=== PATIENT | female | born 1985 | race African-American/Black ===

== ENCOUNTER 2016-12-08 04:14 | Emergency (ER) | payer MEDICAID ==
[2016-12-08] MEDS ORDERED: ALBUTEROL SULFATE 0.083% NEB 2.5 MG/3 ML AMPUL NEB ONE (09:01)
[2016-12-08 09:02] LABS: APPEARANCE,URINE CLEAR; BILIRUBIN,URINE NEGATIVE (NEGATIVE); GLUCOSE, URINE NEGATIVE (NEGATIVE); KETONES,URINE NEGATIVE (NEGATIVE); LEUKOCYTE ESTERASE,URINE TRACE (NEGATIVE); NITRITE,URINE NEGATIVE (NEGATIVE); PROTEIN,URINE NEGATIVE (NEGATIVE); URINE SPECIFIC GRAVITY 1.012; UROBILINOGEN,URINE NEGATIVE mg/dL (<2.0)
--- NOTE | 2016-12-08 09:02 | ER Document Report ---
HPI - HPI Patient complains to provider of: cough and flank pain Onset: Other - Cough for 4 months, flank pain for 6 months Onset/Duration: Persistent Pain Level: 4 Context: 31-year-old female complaining of flank pain for 6 months and cough for 4 months. No fever or chills. - CARDIOVASCULAR Cardiovascular: DENIES: Chest pain - REPRODUCTIVE LMP: 12-03-16 Reproductive: DENIES: : - DERM Skin Color: Normal Past Medical History - General Information source: Patient - Social History Smoking Status: Current Every Day Smoker Chew tobacco use (# tins/day): No Frequency of alcohol use: None Drug Abuse: None Family History: Reviewed & Not Pertinent, Malignancy, Thyroid Disfunction Patient has suicidal ideation: No Patient has homicidal ideation: No Pulmonary Medical History: Reports: Hx Asthma Psychiatric Medical History: Reports: Hx Depression - , Hx Personality Disorder, Hx Post Traumatic Stress Disorder Past Surgical History: Reports: Hx Section - 07/2016 - Immunizations Immunizations up to date: Yes Hx Diphtheria, Pertussis, Tetanus Vaccination: Yes Hx Pneumococcal Vaccination: 09/11/00 Vertical Provider Document - CONSTITUTIONAL Agree With Documented VS: Yes - INFECTION CONTROL TRAVEL OUTSIDE OF THE [place] IN LAST 30 DAYS: No - HEENT HEENT: Normal ENT Exam, Normocephalic. negative: Conjuctival Injection, Pharyngeal Erythema, Tympanic Membrane Red - NECK Neck: Supple. negative: Lymphadenopathy-Left, Lymphadenopathy-Right - RESPIRATORY Respiratory: Breath Sounds Normal, No Respiratory Distress O2 Sat by Pulse Oximetry: 97 - CARDIOVASCULAR Cardiovascular: Regular Rate, Regular Rhythm - GI/ABDOMEN Gastrointestinal: Abdomen Soft, Abdomen Non-Tender, No Organomegaly - BACK Back: Normal Inspection. negative: CVA Tenderness-Right, CVA Tenderness-Left - MUSCULOSKELETAL/EXTREMETIES Musculoskeletal/Extremeties: MAEW, FROM, Non-Tender - NEURO Level of Consciousness: Awake, Alert, Appropriate Motor/Sensory: No Motor Deficit, No Sensory Deficit - DERM Integumentary: Warm, Dry, No Rash Course - Vital Signs Vital signs: Temp Pulse Resp BP Pulse Ox 97.6 F 78 134/81 H 97 12/08/16 04:19 12/08/16 04:19 12/08/16 04:19 12/08/16 04:19 Discharge - Discharge Clinical Impression: Upper respiratory infection, viral, hx asthma, Flank pain Condition: Good Disposition: HOME, SELF-CARE Instructions: Asthma ([facility]), Inhaled Bronchodilators ([facility]), Steroid Medication, Upper Respiratory Illness ([facility]), Stop Smoking ([facility]) Additional Instructions: see [facility] for follow [facility] as planned stop smoking to er if worse Please complete the patient satisfaction survey if you get one, and return it.. If you do not receive a survey, then you can go to the [facility] website, [email or web address] and place your comments about your very good care. Thank you very much. It was a pleasure being your medical provider today. Prescriptions: Albuterol Sulfate [Ventolin 0.083% Neb 2.5 mg/3 mL Ampul] 2.5 mg NEB Q3HP PRN # 25 vial PRN Reason: Albuterol Sulfate [Proair HFA Inhalation Aerosol 8.5 gm MDI] 2 puff IH Q3HP PRN #1 [id number] PRN Reason: Prednisone [Deltasone 10 mg Tablet] 10 mg PO ASDIR PRN #21 tablet PRN Reason: Forms: Return to Work
[2016-12-08 09:57] VITALS: BP 99/52
== END 2016-12-08 10:26 | disposition home or self-care (01) ==
LOC: ER 04:14
DX: J06.9 Acute upper respiratory infection, unspecified (principal); B97.89 Other viral agents as the cause of diseases classified elsewhere; R05 Cough; R10.9 Unspecified abdominal pain; J45.909 Unspecified asthma, uncomplicated; F17.200 Nicotine dependence, unspecified, uncomplicated
CPT/HCPCS: 71020; 81001; 81025; 87086; 94640; 99284

== ENCOUNTER 2017-02-15 09:06 | Emergency (ER) | payer MEDICAID ==
[2017-02-15] MEDS ORDERED: ALBUTEROL SULFATE 0.083% NEB 2.5 MG/3 ML AMPUL NEB ONE (09:36)
--- NOTE | 2017-02-15 09:42 | ER Document Report ---
ED Respiratory Problem - General Chief Complaint: Congestion Stated Complaint: SHORTNESS OF BREATH Time Seen by Provider: 02/15/17 09:33 Notes: 31 yo female with hx/o asthma c/o coughing and chest tightness. admits to running out of albuterol neb solution and inhalers. asthma is triggered by allergies and symptoms have been worse since [facility]. no fever TRAVEL OUTSIDE OF THE [place] IN LAST 30 DAYS: No - HPI Patient complains to provider of: Asthma, Cough, Short of breath Onset: This morning Duration: Continuous Initiating Event: Allergy Quality of pain: No pain Short of Breath: Mild Cough: Nonproductive Sputum amount: None Associated symptoms: None - Related Data Allergies/Adverse Reactions: No Known Allergies Allergy (Verified 02/15/17 09:12) Past Medical History - General Information source: Patient - Social History Smoking Status: Never Smoker Frequency of alcohol use: None Drug Abuse: None Lives with: Family Family History: Reviewed & Not Pertinent, Malignancy, Thyroid Disfunction Patient has suicidal ideation: No Patient has homicidal ideation: No - Past Medical History Cardiac Medical History: Denies: Hx Hypertension, Hx Pulmonary Embolism, Hx Heart Murmur Pulmonary Medical History: Reports: Hx Asthma Denies: Hx Sleep Apnea, Hx Tuberculosis Neurological Medical History: Denies: Hx Cerebrovascular Accident, Hx Seizures Endocrine Medical History: Denies: Hx Hyperthyroidism, Hx Hypothyroidism Renal/ Medical History: Denies: Hx Kidney Stones, Hx Ovarian Cysts, Hx Peritoneal Dialysis, Hx Pelvic Inflammatory Disease Malignancy Medical History: Denies: Hx Breast Cancer, Hx Cervical Cancer, Hx Ovarian Cancer GI Medical History: Denies: Hx Gastroesophageal Reflux Disease, Hx Hiatal Hernia , Hx Ulcer Musculoskeltal Medical History: Denies Hx Fibromyalgia Psychiatric Medical History: Reports: Hx Depression - , Hx Personality Disorder, Hx Post Traumatic Stress Disorder Denies: Hx Bipolar Disorder, Hx Schizophrenia Traumatic Medical History: Denies: Hx Fractures Infectious Medical History: Denies: Hx HIV Past Surgical History: Reports: Hx Section - 07/2016 - Immunizations Immunizations up to date: Yes Hx Diphtheria, Pertussis, Tetanus Vaccination: Yes Hx Pneumococcal Vaccination: 09/11/00 Review of Systems - Review of Systems Constitutional: No symptoms reported EENT: No symptoms reported Cardiovascular: No symptoms reported Respiratory: See HPI, Cough Gastrointestinal: No symptoms reported Genitourinary: No symptoms reported Female Genitourinary: No symptoms reported Musculoskeletal: No symptoms reported Skin: No symptoms reported Hematologic/Lymphatic: No symptoms reported Neurological/Psychological: No symptoms reported Physical Exam - Vital signs Vitals: Temp Pulse Resp BP Pulse Ox 97.7 F 63 16 115/82 98 02/15/17 09:11 02/15/17 09:11 02/15/17 09:11 02/15/17 09:11 02/15/17 09:11 Interpretation: Normal - General General appearance: Appears well, Alert - HEENT Head: Normocephalic, Atraumatic Eyes: Normal Pupils: PERRL - Respiratory Respiratory status: No respiratory distress Chest status: Nontender Breath sounds: Wheezing Chest palpation: Normal - Cardiovascular Rhythm: Regular Heart sounds: Normal auscultation Murmur: No - Abdominal Inspection: Normal Distension: No distension Bowel sounds: Normal Tenderness: Nontender Organomegaly: No organomegaly - Back Back: Normal, Nontender - Extremities General upper extremity: Normal inspection, Nontender, Normal color, Normal ROM , Normal temperature General lower extremity: Normal inspection, Nontender, Normal color, Normal ROM , Normal temperature, Normal weight bearing. No: Queta's sign - Neurological Neuro grossly intact: Yes Cognition: Normal Orientation: AAOx4 Kristian Coma Scale Eye Opening: Spontaneous [place] Coma Scale Verbal: Oriented [place] Coma Scale Motor: Obeys Commands [place] Coma Scale Total: 15 Speech: Normal Motor strength normal: LUE, RUE, LLE, RLE Sensory: Normal - Psychological Associated symptoms: Normal affect, Normal mood - Skin Skin Temperature: Warm Skin Moisture: Dry Skin Color: Normal Course - Vital Signs Vital signs: Temp Pulse Resp BP Pulse Ox 97.7 F 63 16 115/82 98 02/15/17 09:11 02/15/17 09:11 02/15/17 09:11 02/15/17 09:11 02/15/17 09:11 Discharge - Discharge Clinical Impression: Asthma exacerbation Condition: Stable Disposition: HOME, SELF-CARE Instructions: Asthma ([facility]), Inhaled Bronchodilators ([facility]) Additional Instructions: medications as prescribed establish with primary care for further evaluation and treatment avoid triggers when possible Prescriptions: Albuterol Sulfate [Proair HFA Inhalation Aerosol 8.5 gm MDI] 2 puff IH Q4H PRN # 1 mdi PRN Reason: Albuterol Sulfate [Albuterol Sulfate 2.5mg/3 mL] 2.5 mg IH Q4H PRN #30 vial PRN Reason: Cetirizine HCl [Allergy Relief] 10 mg PO DAILY #30 capsule
[2017-02-15 10:45] VITALS: BP 120/88
== END 2017-02-15 10:45 | disposition home or self-care (01) ==
LOC: ER 09:06
DX: J45.901 Unspecified asthma with (acute) exacerbation (principal); T48.6X6A Underdosing of antiasthmatics, initial encounter; Z91.14 Patient's other noncompliance with medication regimen; R05 Cough; R07.89 Other chest pain
CPT/HCPCS: 94640; 99283

== ENCOUNTER → 2017-02-25 | Outpatient (CLI) | payer MEDICAID | LOC: LAB 12:42 | PROVIDERS: ATTEND Emergency Medicine | DX: N89.8 Other specified noninflammatory disorders of vagina (principal); R30.0 Dysuria | CPT/HCPCS: 87086; 87210 ==

== ENCOUNTER 2017-03-09 04:12 | Emergency (ER) | payer MEDICAID ==
[2017-03-09] MEDS ORDERED: IPRATROPIUM/ALBUTEROL 0.5-2.5 MG/3 ML AMPUL NEB ONE (04:37)
[2017-03-09] MEDS ORDERED: PREDNISONE 20 MG TABLET PO ONE (04:38)
--- NOTE | 2017-03-09 04:38 | ER Document Report ---
ED General - General Chief Complaint: Cough Stated Complaint: RUNNY NOSE,COUGH Time Seen by Provider: 03/09/17 04:29 Notes: Patient is a 31 year old female that comes to the ED for chief complaint of vaginal discharge and pelvic cramps for the past 2 days, also reports cough, runny nose, and wheezing for the past week. Patient smokes, has a history of asthma, states she supposed to be on an allergy to medication but she "always forgets to take it every morning". Patient denies any fever, denies worsening cough, denies shortness of breath aside from intermittent wheezing episodes, she states her albuterol inhaler works but she cannot shake the symptoms. Patient admits that she has been sexually active with a new partner without protection recently. She also reports a sore throat. TRAVEL OUTSIDE OF THE [place] IN LAST 30 DAYS: No - Related Data Allergies/Adverse Reactions: No Known Allergies Allergy (Verified 02/15/17 09:12) Past Medical History - General Information source: Patient - Social History Smoking Status: Current Every Day Smoker Smoking Education Provided: Yes - <3 min Frequency of alcohol use: None Drug Abuse: None Lives with: Family Family History: Reviewed & Not Pertinent, Malignancy, Thyroid Disfunction Patient has suicidal ideation: No - Past Medical History Cardiac Medical History: Denies: Hx Hypertension, Hx Pulmonary Embolism, Hx Heart Murmur Pulmonary Medical History: Reports: Hx Asthma Denies: Hx Sleep Apnea, Hx Tuberculosis Neurological Medical History: Denies: Hx Cerebrovascular Accident, Hx Seizures Endocrine Medical History: Denies: Hx Hyperthyroidism, Hx Hypothyroidism Renal/ Medical History: Denies: Hx Kidney Stones, Hx Ovarian Cysts, Hx Peritoneal Dialysis, Hx Pelvic Inflammatory Disease Malignancy Medical History: Denies: Hx Breast Cancer, Hx Cervical Cancer, Hx Ovarian Cancer GI Medical History: Denies: Hx Gastroesophageal Reflux Disease, Hx Hiatal Hernia , Hx Ulcer Musculoskeltal Medical History: Denies Hx Fibromyalgia Psychiatric Medical History: Reports: Hx Depression - , Hx Personality Disorder, Hx Post Traumatic Stress Disorder Denies: Hx Bipolar Disorder, Hx Schizophrenia Traumatic Medical History: Denies: Hx Fractures Infectious Medical History: Denies: Hx HIV Past Surgical History: Reports: Hx Section - 07/2016 - Immunizations Immunizations up to date: Yes Hx Diphtheria, Pertussis, Tetanus Vaccination: Yes Hx Pneumococcal Vaccination: 09/11/00 Review of Systems - Review of Systems Constitutional: No symptoms reported EENT: See HPI Cardiovascular: No symptoms reported Respiratory: See HPI Gastrointestinal: No symptoms reported Genitourinary: No symptoms reported Female Genitourinary: See HPI Musculoskeletal: No symptoms reported Skin: No symptoms reported Hematologic/Lymphatic: No symptoms reported Neurological/Psychological: No symptoms reported Physical Exam - Vital signs Vitals: Temp Pulse Resp BP Pulse Ox 97.7 F 107 H 20 130/88 H 100 03/09/17 04:03/09/17 04:03/09/17 04:03/09/17 04:03/09/17 04:17 Interpretation: Normal - General General appearance: Appears well, Alert In distress: None - HEENT Head: Normocephalic, Atraumatic Eyes: Normal Pupils: PERRL Ears: Normal External canal: Normal Tympanic membrane: Normal Sinus: Normal Nasal: Normal Mouth/Lips: Normal Mucous membranes: Normal Pharynx: Erythema - mild Neck: Normal - Respiratory Respiratory status: No respiratory distress Chest status: Nontender Breath sounds: Decreased air movement, Wheezing - faint end expiratory symptoms Chest palpation: Normal - Cardiovascular Rhythm: Regular. No: Tachycardia Heart sounds: Normal auscultation, S1 appreciated, S2 appreciated Murmur: No - Abdominal Inspection: Normal Distension: No distension Bowel sounds: Normal Tenderness: Nontender. No: Tender, Guarding Organomegaly: No organomegaly - Genitourinary Speculum exam: Cervix closed, Vaginal discharge Vaginal bleeding: None Bimanuel exam: Normal. No: Cervical motion tender - Back Back: Normal, Nontender. No: Tender - Extremities General upper extremity: Normal inspection, Nontender, Normal color, Normal ROM , Normal temperature General lower extremity: Normal inspection, Nontender, Normal color, Normal ROM , Normal temperature, Normal weight bearing. 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 Urine unremarkable, negative HCG, wet mount shows trichomonas, 4+ bacteria. Treating for pelvic infection, BV, trichomonas. Discussed follow up, return precautions, patient states understanding and agreement. - Vital Signs Vital signs: Temp Pulse Resp BP Pulse Ox 98.2 F 64 16 132/63 H 95 03/09/17 07:25 03/09/17 07:25 03/09/17 07:25 03/09/17 07:25 03/09/17 07:25 - Laboratory Laboratory results interpreted by me: 03/09/17 05:10 Ur Leukocyte Esterase TRACE H Discharge - Discharge Clinical Impression: Vaginal discharge, Trichomonas infection, Bacterial vaginosis, Wheezing, Cough , Asthma exacerbation, Tobacco abuse Condition: Stable Disposition: HOME, SELF-CARE Additional Instructions: Take Flagyl as prescribed for treatment of both trichomonas infection and bacterial vaginosis. You have been covered additionally for potential pelvic infection including gonorrhea and chlamydia, these tests are still pending. Stop smoking. Take prednisone as prescribed, use albuterol inhaler as needed, follow-up with primary care for additional evaluation. Return to emergency department for any concerning or worsening symptoms including fever, difficulty breathing, etc. Prescriptions: Albuterol Sulfate [Proair HFA Inhalation Aerosol 8.5 gm MDI] 2 puff IH Q4H PRN # 1 mdi PRN Reason: Metronidazole [Flagyl 500 mg Tablet] 500 mg PO BID #14 tablet Prednisone [Deltasone 10 mg Tablet] 10 mg PO ASDIR PRN #21 tablet PRN Reason:
[2017-03-09 05:41] LABS: APPEARANCE,URINE SLIGHTLY-CLOUDY; BILIRUBIN,URINE NEGATIVE (NEGATIVE); GLUCOSE, URINE NEGATIVE (NEGATIVE); KETONES,URINE NEGATIVE (NEGATIVE); LEUKOCYTE ESTERASE,URINE TRACE (NEGATIVE); NITRITE,URINE NEGATIVE (NEGATIVE); PROTEIN,URINE NEGATIVE (NEGATIVE); UROBILINOGEN,URINE NEGATIVE mg/dL (<2.0)
[2017-03-09] MEDS ORDERED: LIDOCAINE 1% INJ-PF (10 MG/ML) 30 ML SDV INJ ONE (06:12)
[2017-03-09] MEDS ORDERED: CEFTRIAXONE INJ 250 MG VIAL IM ONE (06:12)
[2017-03-09] MEDS ORDERED: AZITHROMYCIN 250 MG TABLET PO ONE (06:12)
[2017-03-09] MEDS ORDERED: METRONIDAZOLE 500 MG TABLET PO ONE (06:12)
[2017-03-09] MEDS ORDERED: ALBUTEROL SULFATE HFA (90 MCG/PUFF) 8 GM MDI (1 MDI/ER DISP) IH ONE (06:14)
[2017-03-09 06:58] LABS: CHLAM PCR NOT DETECTED (NOT DETECT)
[2017-03-09 07:35] VITALS: BP 132/63
== END 2017-03-09 07:35 | disposition home or self-care (01) ==
LOC: ER 04:12
DX: N76.0 Acute vaginitis (principal); B96.89 Other specified bacterial agents as the cause of diseases classified elsewhere; A59.9 Trichomoniasis, unspecified; N73.9 Female pelvic inflammatory disease, unspecified; J45.901 Unspecified asthma with (acute) exacerbation; T50.906A Underdosing of unspecified drugs, medicaments and biological substances, initial encounter; Z91.138 Patient's unintentional underdosing of medication regimen for other reason; Z91.14 Patient's other noncompliance with medication regimen; R05 Cough; R09.89 Other specified symptoms and signs involving the circulatory and respiratory systems; J02.9 Acute pharyngitis, unspecified; F17.200 Nicotine dependence, unspecified, uncomplicated; Z71.6 Tobacco abuse counseling
CPT/HCPCS: 94640; 99283; 96372; 87070; 87210; 87880; 81025; 87077; 81001; 87491; 87591; Q0144; J3490 ×3; J7512; J0696; J7620

== ENCOUNTER 2017-04-22 14:30 | Emergency (ER) | payer OTHER, MEDICAID ==
[2017-04-22] MEDS ORDERED: OXYCODONE-ACETAMINOPHEN 5-325 MG TABLET PO ONE (14:55)
[2017-04-22] MEDS ORDERED: ONDANSETRON 4 MG TAB.RAPDIS PO ONE (14:55)
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
[2017-04-22] MEDS ORDERED: LIDOCAINE 2% JELLY 5 ML TUBE TOP ONE (15:43)
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
[2017-04-22 16:19] VITALS: BP 117/82
== END 2017-04-22 16:19 | disposition home or self-care (01) ==
LOC: ER 14:30
DX: M79.1 Myalgia (principal); V89.2XXA Person injured in unspecified motor-vehicle accident, traffic, initial encounter
CPT/HCPCS: 99284; 70450; 71250; 72125; 74176; S0119

== ENCOUNTER 2017-04-28 23:11 | Emergency (ER) | payer MEDICAID, OTHER ==
--- NOTE | 2017-04-29 01:49 | ER Document Report ---
ED General - General Chief Complaint: Rectal Bleeding Stated Complaint: ABDOMINAL PAIN Time Seen by Provider: 04/29/17 01:38 Notes: Patient is a 31-year-old female who presents with complaint of some rectal bleeding periods been ongoing for 3 days. She says she has been passing blood and some clots. No fevers. No vomiting. No diarrhea. She does have a history of recurrent hemorrhoids. She says her external hemorrhoids have not been bothering her. She is unsure if she has internal hemorrhoids. She has some cramping in her lower abdomen. No other complaints at this time. She says that she does have a family history of colon cancer. Her grandmother when she was in her 50s from colon cancer. When she was diagnosed they told her that she most likely had cancer for approximately 10 years prior to diagnosis which meant that she is expected she had cancer when she was in her 40s. Patient herself has never had colonoscopy. She is followed by the GI physician, Dr. Wright. Patient says Dr. Wright is out of town until next week. TRAVEL OUTSIDE OF THE [place] IN LAST 30 DAYS: No - Related Data Allergies/Adverse Reactions: No Known Allergies Allergy (Verified 04/28/17 23:41) Past Medical History - Social History Smoking Status: Never Smoker Frequency of alcohol use: None Drug Abuse: None Family History: Reviewed & Not Pertinent, Malignancy, Thyroid Disfunction - Past Medical History Cardiac Medical History: Denies: Hx Hypertension, Hx Pulmonary Embolism, Hx Heart Murmur Pulmonary Medical History: Reports: Hx Asthma Denies: Hx Sleep Apnea, Hx Tuberculosis Neurological Medical History: Denies: Hx Cerebrovascular Accident, Hx Seizures Endocrine Medical History: Denies: Hx Hyperthyroidism, Hx Hypothyroidism Renal/ Medical History: Denies: Hx Kidney Stones, Hx Ovarian Cysts, Hx Peritoneal Dialysis, Hx Pelvic Inflammatory Disease Malignancy Medical History: Denies: Hx Breast Cancer, Hx Cervical Cancer, Hx Ovarian Cancer GI Medical History: Denies: Hx Gastroesophageal Reflux Disease, Hx Hiatal Hernia , Hx Ulcer Musculoskeltal Medical History: Denies Hx Fibromyalgia Psychiatric Medical History: Reports: Hx Depression - , Hx Personality Disorder, Hx Post Traumatic Stress Disorder Denies: Hx Bipolar Disorder, Hx Schizophrenia Traumatic Medical History: Denies: Hx Fractures Infectious Medical History: Denies: Hx HIV Past Surgical History: Reports: Hx Section - 07/2016 - Immunizations Immunizations up to date: Yes Hx Diphtheria, Pertussis, Tetanus Vaccination: Yes Hx Pneumococcal Vaccination: 09/11/00 Review of Systems - Review of Systems Notes: My Normal Review Basic REVIEW OF SYSTEMS: CONSTITUTIONAL : Denies fever, chills, or sweats. Denies recent illness. RESPIRATORY: Denies cough, cold, or chest congestion. Denies shortness of breath, difficulty breathing, or wheezing. GASTROINTESTINAL: Some abdominal cramping. Pain. Denies nausea, vomiting, or diarrhea. Rectal bleeding. GENITOURINARY: Denies difficulty urinating, painful urination, burning, frequency, or blood in urine. FEMALE GENITOURINARY: Denies vaginal bleeding, abnormal or irregular periods. MUSCULOSKELETAL: Denies neck or back pain or joint pain or swelling. SKIN: Denies rash or skin lesions. NEUROLOGICAL: Denies altered mental status or loss of consciousness. Denies headache. Denies weakness or paralysis or loss of use of either side. Denies problems with gait or speech. Denies sensory or motor loss. ALL OTHER SYSTEMS REVIEWED AND NEGATIVE. Physical Exam - Vital signs Vitals: Temp Pulse Resp BP Pulse Ox 97.5 F 78 18 120/76 100 04/29/17 02:13 04/29/17 02:13 04/29/17 02:13 04/29/17 02:13 04/29/17 02:13 - Notes Notes: General Appearance: Well nourished, alert, cooperative, no acute distress, no obvious discomfort. Well-appearing. Vitals: reviewed, See vital signs table. Head: no swelling or tenderness to the head Eyes: PERRL, EOMI, Conjuctiva clear Mouth: No decreasd moisture Lungs: No wheezing, No rales, No rhonci, No accessory muscle use, good air exchange bilaterally. Heart: Normal rate, Regular rythm, No murmur, no rub Abdomen: Normal BS, soft, No rigidity, No abdominal tenderness, No guarding, no rebound, no abdominal masses, no organomegaly Rectal: Multiple external hemorrhoids. Some pain on digital rectal exam. No masses felt on digital rectal exam.. Rectal exam was performed with female nurse it investment/portfolio manager, Eneida, in the room. Extremities: strength 5/5 in all extremities, good pulses in all extremities, no swelling or tenderness in the extremities, no edema. Skin: warm, dry, appropriate color, no rash Neuro: speech clear, oriented x 3, normal affect, responds appropriately to questions. Course - Re-evaluation Re-evalutation: 04/29/17 06:57 I will refer the patient to GI specialist due to the rectal bleeding and family history of colon cancer young age. Patient does not have any active bleeding at this time here in the ER and her hemoglobin is normal. CT scan did not show any large tumors or concerning findings except for a dermoid cyst which she is aware of. She says it was found not longer by her primary care doctor. I will refer her to a title i director to help follow this and to do a biopsy if they feel that is needed to rule out any form of malignancy. I did talk about dermoid cysts and the possibility that this could be a malignancy although that this is low likelihood. She is understanding of this and does agree to follow-up. Patient encouraged to return to ER if she has severe pain, fevers, heavy bleeding, or feels that she is worsening in any way. Patient agrees with plan will be discharged home. Dictation of this chart was performed using voice recognition software; therefore, there may be some unintended grammatical errors. - Vital Signs Vital signs: Temp Pulse Resp BP Pulse Ox 98.5 F 75 18 109/68 98 04/29/17 05:09 04/29/17 05:09 04/29/17 05:09 04/29/17 05:09 04/29/17 05:09 - Laboratory Result Diagrams: 04/29/17 02:51 04/29/17 02:51 Laboratory results interpreted by me: 04/29/17 02:51 Glucose 122 H Discharge - Discharge Clinical Impression: Rectal bleeding, Dermoid cyst Condition: Good Disposition: HOME, SELF-CARE Additional Instructions: Your CT scan shows a dermoid cyst over the left ovary. This needs to be followed closely by a title i director to make sure it is not increasing in size. They will most likely follow-up with ultrasounds and determine whether or not you need a biopsy or just continued routine monitoring. Cancer is unlikely but always still a possibility and that is why is extremely important that this is monitored by the title i director and that you follow-up with the title i director. The title i director environmental sustainability manager chente is Dr. Harris. I did put her information in your discharge paperwork so you can call the office. Please follow-up with a GI physician in regards to your rectal bleeding and family history of colon cancer. Your CT scan today did not show any obvious large bowel masses however CT scan is not 100% and will not rule out potential precancerous polyps. The GI physicians I have provided information to are Dr. Joshi, Dr. Wright, and Dr. Reddy. Please call any of those for a follow-up appointment. Please return to the ER if you get worsening bleeding, severe pain, fevers, or feel unwell. Referrals: RENEE SABA MD [Primary Care Provider] - Follow up as needed OLGA HARRIS MD [ACTIVE STAFF] - Follow up in 3-5 days LUCIA WRIGHT MD [ACTIVE STAFF] - Follow up in 3-5 days DANGELO JOSHI MD [ACTIVE STAFF] - Follow up in 3-5 days ANTON REDDY MD [ACTIVE STAFF] - Follow up in 3-5 days
[2017-04-29 03:00] LABS: ABSOLUTE BASOPHILS # (AUTO) 0.1 10^3/uL (0.0-0.2); ABSOLUTE EOSINOPHILS # (AUTO) 0.3 10^3/uL (0.0-0.6); ABSOLUTE LYMPHOCYTES (AUTO) 2.9 10^3/uL (0.5-4.7); ABSOLUTE MONOCYTES (AUTO) 0.6 10^3/uL (0.1-1.4); ABSOLUTE NEUT (AUTO) 3.9 10^3/uL (1.7-8.2); BASOPHILS % (AUTO) 1.2 % (0-2); EOSINOPHILS % (AUTO) 4.2 % (0-6); HEMATOCRIT 38.5 % (36.0-47.0); HEMOGLOBIN 13.1 g/dL (12.0-15.5); HGB HCT DIFFERENCE 0.8; LYMPHOCYTES % (AUTO) 37.1 % (13-45); MEAN CORPUSCULAR HEMOGLOBIN 30.9 pg (27.0-33.4); MEAN CORPUSCULAR VOLUME 91 fl (80-97); MONOCYTES % (AUTO) 7.4 % (3-13); RED BLOOD COUNT 4.24 10^6/uL (3.72-5.28); RED CELL DISTRIBUTION WIDTH 12.6 % (11.5-14.0); SEGMENTED NEUTROPHILS % (AUTO) 50.1 % (42-78); WHITE BLOOD COUNT 7.7 10^3/uL (4.0-10.5)
[2017-04-29 03:10] LABS: ANION GAP 7 (5-19); BLOOD UREA NITROGEN 16 mg/dL (7-20); CALCIUM 9.7 mg/dL (8.4-10.2); CARBON DIOXIDE 27 mmol/L (22-30); CHLORIDE 107 mmol/L (98-107); CREATININE RESULT 0.64 mg/dL (0.52-1.25); GLUCOSE 122 mg/dL (75-110); POTASSIUM 4.2 mmol/L (3.6-5.0); SODIUM 140.5 mmol/L (137-145)
[2017-04-29] MEDS ORDERED: DICYCLOMINE HCL INJ 20 MG/2 ML AMPULE IM ONE (04:13)
[2017-04-29] MEDS ORDERED: HYDROCODONE/ACETAMINOPHEN 5-325 MG TABLET PO ONE (04:29)
--- NOTE | 2017-04-29 04:45 | RADIOLOGY REPORT (SQ) ---
EXAM DESCRIPTION: CT ABD/PELVIS NO ORAL OR IV COMPLETED DATE/TIME: 04/29/2017 3:50 am REASON FOR STUDY: abdominal pain, rectal bleeding COMPARISON: 04.22.17. MRI, pelvis, 06/22/2012. Ultrasound, pelvis, 05/25/2010. TECHNIQUE: CT scan of the abdomen and pelvis performed without intravenous or oral contrast. Images reviewed with lung, soft tissue, and bone windows. Reconstructed coronal and sagittal MPR images revi ewed. All images stored on PACS. All CT scanners at this facility use dose modulation, iterative reconstruction, and/or weight based d osing when appropriate to reduce radiation dose to as low as reasonably achievable (ALARA). [facility]: Dose Right [facility]: CareDose [facility]: Dose Right [facility]: Teradose 4D [facility]: [place]imer RADIATION DOSE: Up-to-date CT equipment and radiation dose reduction techniques were employed. CTDIv ol: 5.1 mGy. DLP: 240 mGy-cm.mGy. LIMITATIONS: None. FINDINGS: LOWER CHEST: No significant findings. No nodules or infiltrates. NON-CONTRASTED LIVER, SPLEEN, ADRENALS: Evaluation limited by lack of IV contrast. No identified sign ificant masses. PANCREAS: No masses. No peripancreatic inflammatory changes. GALLBLADDER: No identified stones by CT criteria. No inflammatory changes to suggest cholecystitis. RIGHT KIDNEY AND URETER: No suspicious masses. Assessment limited by lack of IV contrast. No signif icant calcifications. No hydronephrosis or hydroureter. LEFT KIDNEY AND URETER: No suspicious masses. Assessment limited by lack of IV contrast. No signifi cant calcifications. No hydronephrosis or hydroureter. AORTA AND RETROPERITONEUM: No aneurysm. No retroperitoneal masses or adenopathy. BOWEL AND PERITONEAL CAVITY: No obvious masses or inflammatory changes. No free fluid. APPENDIX: No evidence of appendicitis. PELVIS, BLADDER, AND ABDOMINAL WALL:4.9 x 4.1 x 2.5 cm complex mass with coarse calcification of the left ovarian fossa consistent with an ovarian dermoid or other neoplasm without suspicious interval c hange. BONES: No significant findings. OTHER: No other significant finding. IMPRESSION: 1. Likely 4.9 cm left ovarian dermoid; differential diagnosis includes pedunculated fib roid or other neoplasm. Pelvic sonogram recommended. 2. Otherwise, unremarkable CT of the abdomen pelvis. TECHNICAL DOCUMENTATION: JOB ID: [id number] Quality ID # [id number]: Final reports with documentation of one or more dose reduction techniques (e.g., Au tomated exposure control, adjustment of the mA and/or kV according to patient size, use of iterative reconstruction technique) 2010 [employer]- All Rights Reserved
[2017-04-29 05:14] VITALS: BP 120/76
== END 2017-04-29 05:15 | disposition home or self-care (01) ==
LOC: ER 23:11
DX: D36.9 Benign neoplasm, unspecified site (principal); K62.5 Hemorrhage of anus and rectum; R10.9 Unspecified abdominal pain; R10.30 Lower abdominal pain, unspecified
CPT/HCPCS: 36415; 74176; 80048; 85025; 99284

== ENCOUNTER 2017-08-09 08:44 | Emergency (ER) | payer MEDICAID ==
[2017-08-09] MEDS ORDERED: PREDNISONE 20 MG TABLET PO ONE (09:49)
--- NOTE | 2017-08-09 09:50 | ER Document Report ---
HPI - HPI Patient complains to provider of: Sore throat, cough Onset: Other - 2 weeks Onset/Duration: Persistent Quality of pain: Achy Pain Level: 4 Context: Patient presents complaining of sore throat, sinus pressure with right ear pain. Patient states she has had cough for the past 2 weeks. Patient does report recent sick contacts at her place of employment. Patient denies any fever. Associated Symptoms: Nonproductive cough, Earache, Sore throat. denies: Fever, Headache Exacerbated by: Denies Relieved by: Denies Similar symptoms previously: Yes Recently seen / treated by doctor: No - ROS ROS below otherwise negative: Yes Systems Reviewed and Negative: Yes All other systems reviewed and negative - CONSTITUTIONAL Constitutional: DENIES: Fever, Chills - EENT EENT: REPORTS: Sore Throat, Ear Pain - right. DENIES: Eye problems - NEURO Neurology: DENIES: Headache, Weakness, Vision blurred, Dizzinesss / Vertigo - CARDIOVASCULAR Cardiovascular: DENIES: Chest pain - RESPIRATORY Respiratory: REPORTS: Coughing. DENIES: Trouble Breathing - GASTROINTESTINAL Gastrointestinal: DENIES: Abdominal Pain, Black / Bloody Stools - URINARY Urinary: DENIES: Dysuria - REPRODUCTIVE Reproductive: DENIES: : - MUSCULOSKELETAL Musculoskeletal: DENIES: Extremity pain - DERM Skin Color: Normal Skin Problems: None Past Medical History - General Information source: Patient - Social History Smoking Status: Current Every Day Smoker Chew tobacco use (# tins/day): No Frequency of alcohol use: None Drug Abuse: None Occupation: [employer] Lives with: Family Family History: Reviewed & Not Pertinent, Malignancy, Thyroid Disfunction Patient has suicidal ideation: No Patient has homicidal ideation: No - Past Medical History Cardiac Medical History: Denies: Hx Coronary Artery Disease, Hx Heart Attack, Hx Hypertension, Hx Pulmonary Embolism, Hx Heart Murmur Pulmonary Medical History: Reports: Hx Asthma Denies: Hx Bronchitis, Hx COPD, Hx Pneumonia, Hx Sleep Apnea, Hx Tuberculosis Neurological Medical History: Denies: Hx Cerebrovascular Accident, Hx Seizures Endocrine Medical History: Denies: Hx Hyperthyroidism, Hx Hypothyroidism Renal/ Medical History: Denies: Hx Kidney Stones, Hx Ovarian Cysts, Hx Peritoneal Dialysis, Hx Pelvic Inflammatory Disease Malignancy Medical History: Denies: Hx Breast Cancer, Hx Cervical Cancer, Hx Ovarian Cancer GI Medical History: Denies: Hx Gastroesophageal Reflux Disease, Hx Hiatal Hernia , Hx Ulcer Musculoskeltal Medical History: Denies Hx Arthritis, Denies Hx Fibromyalgia Psychiatric Medical History: Reports: Hx Depression - , Hx Personality Disorder, Hx Post Traumatic Stress Disorder Denies: Hx Bipolar Disorder, Hx Schizophrenia Traumatic Medical History: Denies: Hx Fractures Infectious Medical History: Denies: Hx HIV Past Surgical History: Reports: Hx Section - 07/2016 - Immunizations Immunizations up to date: Yes Hx Diphtheria, Pertussis, Tetanus Vaccination: No Hx Pneumococcal Vaccination: 09/11/00 Vertical Provider Document - CONSTITUTIONAL Agree With Documented VS: Yes Exam Limitations: No Limitations General Appearance: WD/WN, No Apparent Distress - INFECTION CONTROL TRAVEL OUTSIDE OF THE [place] IN LAST 30 DAYS: No - HEENT HEENT: Atraumatic, Normocephalic, Pharyngeal Tenderness, Pharyngeal Erythema. negative: Pharyngeal Exudate, Tympanic Membrane Red, Tympanic Membrane Bulging - NECK Neck: Normal Inspection, Supple. negative: Lymphadenopathy-Left, Lymphadenopathy-Right - RESPIRATORY Respiratory: No Respiratory Distress, Chest Non-Tender, Wheezing - faint with cough only O2 Sat by Pulse Oximetry: 98 - CARDIOVASCULAR Cardiovascular: Regular Rate, Regular Rhythm, No Murmur - BACK Back: Normal Inspection - MUSCULOSKELETAL/EXTREMETIES Musculoskeletal/Extremeties: MAEW, FROM - NEURO Level of Consciousness: Awake, Alert, Appropriate Motor/Sensory: No Motor Deficit - DERM Integumentary: Warm, Dry, No Rash Course - Vital Signs Vital signs: Temp Pulse Resp BP Pulse Ox 99.1 F 59 L 16 115/64 98 08/09/17 09:04 08/09/17 09:04 08/09/17 09:04 08/09/17 09:04 08/09/17 09:04 - Laboratory Laboratory results interpreted by me: 08/09/17 10:55 Labs- Entire Visit 08/09/17 09:55 Group A Strep Rapid NEGATIVE Discharge - Discharge Clinical Impression: Sore throat, Wheezing, History of asthma Upper respiratory infection Qualifiers: URI type: unspecified URI Qualified Code(s): J06.9 - Acute upper respiratory infection, unspecified Condition: Stable Disposition: HOME, SELF-CARE Instructions: Bronchospasm ([facility]), Sore Throat ([facility]), Steroid Medication, Upper Respiratory Illness ([facility]) Additional Instructions: Return immediately for any new or worsening symptoms Followup with your primary care provider, call tomorrow to make a followup appointment Use your albuterol inhaler that you have at home to help with wheezing and cough Prescriptions: Benzonatate [Tessalon Perle 100 mg Capsule] 100 mg PO Q8HP PRN #20 cap PRN Reason: Naproxen [Naprosyn 250 Nmg Tablet] 1 tab PO BID #14 tablet Prednisone [Deltasone 20 mg Tablet] 3 tab PO DAILY 4 Days tablet Forms: Smoking Cessation Education, Return to Work Referrals: RENEE SABA MD [Primary Care Provider] - Follow up tomorrow
[2017-08-09 11:14] VITALS: BP 109/68
== END 2017-08-09 11:14 | disposition home or self-care (01) ==
LOC: ER 08:44
DX: J06.9 Acute upper respiratory infection, unspecified (principal); J45.909 Unspecified asthma, uncomplicated; J02.9 Acute pharyngitis, unspecified; R05 Cough; H92.01 Otalgia, right ear; F17.200 Nicotine dependence, unspecified, uncomplicated
CPT/HCPCS: 99283; 87070; 87880; J7512

== ENCOUNTER 2017-08-30 08:18 | Day surgery (SDC) | payer MEDICAID ==
[2017-08-24 12:01] LABS: APPEARANCE,URINE SLIGHTLY-CLOUDY; BILIRUBIN,URINE NEGATIVE (NEGATIVE); GLUCOSE, URINE NEGATIVE (NEGATIVE); KETONES,URINE NEGATIVE (NEGATIVE); LEUKOCYTE ESTERASE,URINE TRACE (NEGATIVE); NITRITE,URINE NEGATIVE (NEGATIVE); PROTEIN,URINE NEGATIVE (NEGATIVE); URINE SPECIFIC GRAVITY 1.013; UROBILINOGEN,URINE NEGATIVE mg/dL (<2.0)
[2017-08-24 12:04] LABS: HEMATOCRIT 40.4 % (36.0-47.0); HEMOGLOBIN 13.7 g/dL (12.0-15.5); HGB HCT DIFFERENCE 0.7; MEAN CORPUSCULAR HEMOGLOBIN 30.5 pg (27.0-33.4); MEAN CORPUSCULAR VOLUME 90 fl (80-97); RED BLOOD COUNT 4.49 10^6/uL (3.72-5.28); WHITE BLOOD COUNT 8.1 10^3/uL (4.0-10.5)
--- NOTE | 2017-08-24 12:58 | EKG REPORT ---
SEVERITY:- NORMAL ECG - SINUS RHYTHM : Confirmed by: Marcia Alvarez 24-Aug-2017 12:57:42
[~2017-08-30 08:18] MED LIST: ACETAMINOPHEN 100 ML IV ONE; DEXMEDETOMIDINE INJ 80 MCG/20 ML VIAL IV ONE; FENTANYL CITRATE INJ/PF 100 MCG/2 ML AMPUL ONE; LACTATED RINGERS 1000 ML IV PRN; LIDOCAINE 0.5% INJ-PF (5 MG/ML) 50 ML SDV SUBCUT PRN; MIDAZOLAM 2 MG/2 ML INJ ONE; PROPOFOL INJ 200 MG/20 ML VIAL IV ONE
[2017-08-30] MEDS ORDERED: ALBUTEROL SULFATE 0.083% NEB 2.5 MG/3 ML AMPUL NEB ONE ×2 (09:05→09:45)
[2017-08-30] MEDS ORDERED: MIDAZOLAM 2 MG/2 ML INJ ONE (09:56)
--- NOTE | 2017-08-30 12:06 | Operative Report ---
Operative Report DATE OF SURGERY: 08/30/17 PREOPERATIVE DIAGNOSIS: Left-sided dermoid POSTOPERATIVE DIAGNOSIS: Same OPERATION: Laparoscopic removal of left tube and ovary SURGEON: GWEN PRABHAKAR ANESTHESIA: GA TISSUE REMOVED OR ALTERED: Left tube and ovary COMPLICATIONS: None ESTIMATED BLOOD LOSS: 20 cc INTRAOPERATIVE FINDINGS: Left ovarian adhesions and dermoid normal right ovary and tube PROCEDURE: Patient was taken the OR and placed in supine position. General anesthesia was induced. She is placed in dorsolithotomy position using Ayad stirrups. Her abdomen perineum and vagina were prepared and draped sterile fashion. Her bladder was drained with a red rubber catheter. A sponge stick was placed in the vagina for manipulation of the uterus. Incision was made the umbilicus natural umbilical defect identified and dilated Lou clamp allowing a blunt port to be placed. Laparoscopy for confirmed appropriate placement. The abdomen was insufflated with CO2 gas. View of the pelvis was good. A left lateral port was placed under laparoscopic visualization in the suprapubic port was placed under laparoscopic visualization. The ovary and tube were elevated up out of the pelvis on the left side. The omental adhesions to the ovary and tube were taken down using she blunt dissection. The ureter was identified down in the pelvis away from the operative site. The LigaSure device was then used to cauterize and cut the infundibulopelvic pedicle. The utero-ovarian pedicle was also cauterized and cut. This freed up the ovary and tube. An 11 mm port had been placed to the umbilicus and 5 mm ports placed suprapubically and laterally. This allowed the Endo Catch bag to go through the umbilical port. The ovary and tube were placed in the bag and brought to the incision. The ovary was removed in the bag by bluntly morcellating the ovary with Sidon clamps. None of the ovarian contents were spilled. The entire specimen was sent for pathology. Next the blunt port was replaced in the umbilical incision. The abdomen was reinsufflated. The ovarian pedicle was hemostatic. The suprapubic port in the left lateral port were removed under laparoscopic visualization. The umbilical report port was removed under laparoscopic visualization. The gas was allowed to escape from the abdomen. The fascia at the umbilicus was closed with a 2-0 Vicryl suture in interrupted fashion. And skin at all 3 sites closed with 4-0 undyed Vicryl suture. The sponge stick was removed from the vagina at the end of the case. Patient was placed back in supine position and taken to recovery room in stable condition. End of dictation
[2017-08-30] MEDS ORDERED: MEPERIDINE HCL/PF INJ 25 MG/1 ML DISP.SYRIN IV PRN (12:15)
[2017-08-30] MEDS ORDERED: DIPHENHYDRAMINE HCL 50 MG/ML VIAL IV PRN (12:15)
[2017-08-30] MEDS ORDERED: MORPHINE SULFATE 10 MG/ML INJ IV PRN (12:15)
[2017-08-30] MEDS ORDERED: PROMETHAZINE HCL INJ 25 MG/1 ML VIAL IV PRN ×2 (12:15)
[2017-08-30] MEDS ORDERED: FENTANYL CITRATE INJ/PF 100 MCG/2 ML AMPUL IV PRN ×3 (12:15)
[2017-08-30] MEDS ORDERED: FENTANYL CITRATE INJ/PF 100 MCG/2 ML AMPUL ONE (12:23)
[2017-08-30] MEDS ORDERED: OXYCODONE-ACETAMINOPHEN 5-325 MG TABLET PO PRN ×2 (13:19)
[2017-08-30] MEDS ORDERED: OXYCODONE-ACETAMINOPHEN 5-325 MG TABLET ONE (13:23)
[2017-08-30] MEDS ORDERED: PROMETHAZINE HCL INJ 25 MG/1 ML VIAL ONE (13:30)
[2017-08-30] MEDS ORDERED: KETOROLAC TROMETHAMINE INJ/PF 30 MG/1 ML SDV IV PRN (13:30)
[2017-08-30] MEDS ORDERED: IBUPROFEN 800 MG TABLET PO PRN (13:30)
[2017-08-30] MEDS ORDERED: RINGERS SOLUTION,LACTATED 500 ML IV ONE (14:15)
[2017-08-30] MEDS ORDERED: PROMETHAZINE HCL INJ 25 MG/1 ML VIAL IV ONE (14:15)
[2017-08-30] MEDS ORDERED: GLYCOPYRROLATE INJ 0.4 MG/2 ML VIAL ONE (14:26)
[2017-08-30] MEDS ORDERED: METOCLOPRAMIDE HCL INJ/PF 10 MG/2 ML SDV ONE (14:26)
[2017-08-30] MEDS ORDERED: NEOSTIGMINE METHYLSULFATE 10 MG/10 ML VIAL ONE (14:26)
[2017-08-30] MEDS ORDERED: SUCCINYLCHOLINE CHLORIDE INJ 200 MG/10 ML VIAL ONE (14:26)
[2017-08-30] MEDS ORDERED: ROCURONIUM BROMIDE INJ 50 MG/5 ML VIAL IV ONE (14:26)
[2017-08-30] MEDS ORDERED: DEXAMETHASONE SOD PHOSPHATE INJ 4 MG/1 ML VIAL ONE (14:26)
[2017-08-30] MEDS ORDERED: KETOROLAC TROMETHAMINE 60 MG/2 ML SDV ONE (14:26)
[2017-08-30] MEDS ORDERED: ONDANSETRON HCL INJ/PF 4 MG/2 ML SDV ONE (14:26)
[2017-08-30] MEDS ORDERED: LIDOCAINE 2% INJ-PF (20 MG/ML) 2 ML AMPUL ONE (14:26)
[2017-08-30 14:45] VITALS: BP 114/60
== END 2017-08-30 14:40 | disposition home or self-care (01) ==
LOC: OROUT 08:18
PROVIDERS: ATTEND Obstetrics & Gynecology
PROC: 0UT64ZZ Resection of Left Fallopian Tube, Percutaneous Endoscopic Approach (ICD-10-PCS; 2017-08-30)
PROC: 0UT14ZZ Resection of Left Ovary, Percutaneous Endoscopic Approach (ICD-10-PCS; principal; 2017-08-30 10:45)
DX: D27.1 Benign neoplasm of left ovary (principal); J45.909 Unspecified asthma, uncomplicated; Z79.899 Other long term (current) drug therapy; Z79.51 Long term (current) use of inhaled steroids
CPT/HCPCS: 93005; 36415 ×2; 84703; 85027; 81005; 88305 ×2; 93010; 94640; 58661; J2250; J3490 ×4; J1100; J1885; J3010; J2765; J2550; J0330; J2405; J2704; J0131; 840

== ENCOUNTER 2017-12-08 08:46 | Emergency (ER) | payer MEDICAID ==
--- NOTE | 2017-12-08 09:11 | ER Document Report ---
ED General - General Chief Complaint: Vaginal Discharge Stated Complaint: VAGINAL DISCOMFORT Time Seen by Provider: 12/08/17 08:58 Mode of Arrival: Ambulatory Information source: Patient Notes: 32-year-old female presents to ED for complaint of sore throat with abnormal vaginal discharge no period since August. She states she has been tested and treated for arterial vaginosis but is never finished her medication she states she takes it for several days and then forgets to finish it. She states she also has a outbreak of herpes. TRAVEL OUTSIDE OF THE [place] IN LAST 30 DAYS: No - HPI Onset: Other Onset/Duration: Gradual Quality of pain: Sharp Severity: Moderate Pain Level: 2 Associated symptoms: Other - Vaginal discharge herpes outbreak sore throat Exacerbated by: Movement, Walking Relieved by: Denies Similar symptoms previously: Yes Recently seen / treated by doctor: Yes - Related Data Allergies/Adverse Reactions: No Known Allergies Allergy (Verified 12/08/17 08:49) Past Medical History - General Information source: Patient - Social History Smoking Status: Current Every Day Smoker Cigarette use (# per day): Yes - Half pack per day Chew tobacco use (# tins/day): No Smoking Education Provided: Yes - 4 minutes Frequency of alcohol use: Occasional Drug Abuse: None Lives with: Family Family History: Arthritis, Malignancy, Thyroid Disfunction Patient has suicidal ideation: No Patient has homicidal ideation: No - Past Medical History Cardiac Medical History: Reports: None Pulmonary Medical History: Reports: Hx Asthma - ALBUTEROL PRN EENT Medical History: Reports: None Neurological Medical History: Reports: None Endocrine Medical History: Reports: None Renal/ Medical History: Reports: None Malignancy Medical History: Reports: None GI Medical History: Reports: None Musculoskeltal Medical History: Reports Hx Arthritis - BILAT HIP DDD, Reports Hx Musculoskeletal Trauma Skin Medical History: Reports None Psychiatric Medical History: Reports: Hx Anxiety, Hx Depression - , Hx Personality Disorder, Hx Post Traumatic Stress Disorder Traumatic Medical History: Reports: None Infectious Medical History: Reports: None Past Surgical History: Reports: Hx Section - 2 - Immunizations Immunizations up to date: Yes Hx Diphtheria, Pertussis, Tetanus Vaccination: No Hx Pneumococcal Vaccination: 09/11/00 Review of Systems - Review of Systems Constitutional: No symptoms reported EENT: Throat pain Cardiovascular: No symptoms reported Respiratory: No symptoms reported Gastrointestinal: No symptoms reported Genitourinary: No symptoms reported Female Genitourinary: Vaginal discharge, Other - Herpes outbreak Musculoskeletal: No symptoms reported Skin: No symptoms reported Hematologic/Lymphatic: No symptoms reported Neurological/Psychological: No symptoms reported -: Yes All other systems reviewed and negative Physical Exam - Vital signs Vitals: Temp Pulse Resp BP Pulse Ox 97.9 F 82 18 111/76 96 12/08/17 08:53 12/08/17 08:53 12/08/17 08:53 12/08/17 08:53 12/08/17 08:53 Interpretation: Normal - General General appearance: Appears well, Alert - HEENT Head: Normocephalic, Atraumatic Eyes: Normal Pupils: PERRL - Respiratory Respiratory status: No respiratory distress Chest status: Nontender Breath sounds: Normal Chest palpation: Normal - Cardiovascular Rhythm: Regular Heart sounds: Normal auscultation Murmur: No - Abdominal Inspection: Normal Distension: No distension Bowel sounds: Normal Tenderness: Nontender Organomegaly: No organomegaly - Genitourinary External exam: Lesions Speculum exam: Vaginal discharge Vaginal bleeding: None Bimanuel exam: Normal - Back Back: Normal, Nontender - Extremities General upper extremity: Normal inspection, Nontender, Normal color, Normal ROM , Normal temperature General lower extremity: Normal inspection, Nontender, Normal color, Normal ROM , Normal temperature, Normal weight bearing. No: Queta's sign - Neurological Neuro grossly intact: Yes Cognition: Normal Orientation: AAOx4 [place] Coma Scale Eye Opening: Spontaneous Kristian Coma Scale Verbal: Oriented Kristian Coma Scale Motor: Obeys Commands Kristian Coma Scale Total: 15 Speech: Normal Motor strength normal: LUE, RUE, LLE, RLE Sensory: Normal - Psychological Associated symptoms: Normal affect, Normal mood - Skin Skin Temperature: Warm Skin Moisture: Dry Skin Color: Normal Course - Vital Signs Vital signs: Temp Pulse Resp BP Pulse Ox 98.4 F 71 16 108/76 98 12/08/17 11:28 12/08/17 11:28 12/08/17 11:28 12/08/17 11:28 12/08/17 11:28 Discharge - Discharge Clinical Impression: Bacterial vaginosis, Herpes simplex virus (HSV) infection of vagina Condition: Stable Disposition: HOME, SELF-CARE Additional Instructions: VAGINOSIS, BACTERIAL: Your exam shows you have bacterial vaginosis. This condition is due to an overgrowth of bacteria in the vagina. Symptoms may include vaginal itching or pain, a smelly discharge, and sometimes burning with urination. Normally this is not transmitted by sexual contact. Vaginosis can be treated with oral or topical antibiotics. Metronidazole ( Flagyl) pills are usually effective. Topical vaginal creams include Cleocin and Metro-Gel. You should avoid sexual contact until your symptoms are all better. Call the doctor if you develop pelvic pain, fever, or problems with urination, or if you don't improve as expected. Genital Herpes Your exam suggests that you have a herpes infection. A culture can confirm the diagnosis. Herpes is caused by a virus, and can be transmitted sexually. After the initial infection has healed, the virus often erupts at the same location from time to time. Herpes can be treated with anti-viral medication. The medicine can be used as pills or ointment. It's most effective if started with the first symptoms of the attack. It is not a "cure" -- it simply shortens the length of the illness. If this is not your first attack, the medicine may not help you. In the female, herpes can infect the baby as it passes through the canal, causing a life-threatening disease. You should inform the dress marker that you've had herpes should you (or your spouse) become . Sexual contact should be avoided any time the sores are present, but the virus may be contagious even at other times. The use of condoms may help prevent infection in your partner. METRONIDAZOLE: Metronidazole (Flagyl) has been prescribed. This medication is used to kill a type of bacteria called anaerobes, and protozoan parasites such as trichomonas and Giardia. Flagyl often causes a metallic taste in the mouth and mild nausea. Do not use alcohol in any form with Flagyl (including alcohol in medication elixirs). Flagyl interacts with alcohol to cause flushing, palpitations, headache, stomach cramps, and vomiting. Do not use Flagyl if you are taking Antabuse (disulfiram). Call the doctor at once if you develop rash, shortness of breath, itching, or lightheadedness. FOLLOW-UP CARE: If you have been referred to a physician for follow-up care, call the physician s office for an appointment as you were instructed or within the next two days. If you experience worsening or a significant change in your symptoms, notify the physician immediately or return to the Emergency Department at any time for re-evaluation. Prescriptions: Metronidazole [Flagyl 500 mg Tablet] 500 mg PO BID #14 tablet Valacyclovir HCl [Valtrex] 1,000 mg PO BID #20 tablet Forms: Return to Work Referrals: RENEE SABA MD [Primary Care Provider] - Follow up as needed
[2017-12-08 09:51] LABS: BACTERIA (WET MOUNT) 3+ BACTERIA SEEN; EPITHELIALS (WET MOUNT) 4+ EPITHELIALS SEEN; RBCS (WET MOUNT) NO RBCS SEEN; T.VAGINALIS (WET MOUNT) NO TRICHOMONAS SEEN; WBCS (WET MOUNT) 1+ WBCS SEEN; YEAST (WET MOUNT) NO YEAST SEEN
[2017-12-08 10:36] LABS: APPEARANCE,URINE CLEAR; BILIRUBIN,URINE NEGATIVE (NEGATIVE); COLOR,URINE STRAW; GLUCOSE, URINE NEGATIVE (NEGATIVE); KETONES,URINE NEGATIVE (NEGATIVE); PROTEIN,URINE NEGATIVE (NEGATIVE); URINE SPECIFIC GRAVITY 1.021
[2017-12-08 10:37] LABS: LEUKOCYTE ESTERASE,URINE NEGATIVE (NEGATIVE); NITRITE,URINE NEGATIVE (NEGATIVE); UROBILINOGEN,URINE NEGATIVE mg/dL (<2.0)
[2017-12-08 11:18] LABS: CHLAM PCR NOT DETECTED (NOT DETECT); GON PCR NOT DETECTED (NOT DETECT)
[2017-12-08 11:30] VITALS: BP 108/76
== END 2017-12-08 11:30 | disposition home or self-care (01) ==
LOC: ER 08:46
DX: N76.0 Acute vaginitis (principal); B96.89 Other specified bacterial agents as the cause of diseases classified elsewhere; A60.04 Herpesviral vulvovaginitis; J02.9 Acute pharyngitis, unspecified; F17.210 Nicotine dependence, cigarettes, uncomplicated; J45.909 Unspecified asthma, uncomplicated
CPT/HCPCS: 81001; 87070; 87210; 87491; 87591; 87880; 99283; 99406

== ENCOUNTER → 2018-03-26 | Outpatient (CLI) | payer MEDICAID ==
[2018-03-26 17:20] LABS: BACTERIA (WET MOUNT) 4+ BACTERIA SEEN; EPITHELIALS (WET MOUNT) 3+ EPITHELIALS SEEN; T.VAGINALIS (WET MOUNT) NO TRICHOMONAS SEEN; WBCS (WET MOUNT) FEW WBCS SEEN; YEAST (WET MOUNT) NO YEAST SEEN
[2018-03-26 18:47] LABS: CHLAM PCR NOT DETECTED (NOT DETECT); GON PCR NOT DETECTED (NOT DETECT)
== END ==
LOC: LAB 17:04
PROVIDERS: ATTEND Nurse Practitioner Acute Care
DX: N89.8 Other specified noninflammatory disorders of vagina (principal)
CPT/HCPCS: 87210; 87491; 87591

== ENCOUNTER → 2018-04-18 | Outpatient (CLI) | payer MEDICAID ==
[2018-04-18 18:15] LABS: BACTERIA (WET MOUNT) 3+ BACTERIA SEEN; EPITHELIALS (WET MOUNT) 3+ EPITHELIALS SEEN; T.VAGINALIS (WET MOUNT) NO TRICHOMONAS SEEN; WBCS (WET MOUNT) FEW WBCS SEEN; YEAST (WET MOUNT) NO YEAST SEEN
[2018-04-18 19:39] LABS: CHLAM PCR NOT DETECTED (NOT DETECT); GON PCR NOT DETECTED (NOT DETECT)
== END ==
LOC: LAB 18:01
PROVIDERS: ATTEND Nurse Practitioner Family
DX: N89.8 Other specified noninflammatory disorders of vagina (principal); R30.0 Dysuria
CPT/HCPCS: 87086; 87210; 87491; 87591

== ENCOUNTER → 2018-06-20 | Outpatient (CLI) | payer MEDICAID ==
[2018-06-20 12:01] LABS: BACTERIA (WET MOUNT) 4+ BACTERIA SEEN; EPITHELIALS (WET MOUNT) 3+ EPITHELIALS SEEN; RBCS (WET MOUNT) 1+ RBCS SEEN; T.VAGINALIS (WET MOUNT) NO TRICHOMONAS SEEN; WBCS (WET MOUNT) 1+ WBCS SEEN; YEAST (WET MOUNT) NO YEAST SEEN
[2018-06-20 13:20] LABS: CHLAM PCR NOT DETECTED (NOT DETECT); GON PCR NOT DETECTED (NOT DETECT)
== END ==
LOC: LAB 11:41
PROVIDERS: ATTEND Nurse Practitioner Family
DX: N89.8 Other specified noninflammatory disorders of vagina (principal); R30.0 Dysuria
CPT/HCPCS: 87210; 87491; 87591

== ENCOUNTER → 2018-08-08 | Outpatient (CLI) | payer MEDICAID ==
[2018-08-08 12:09] LABS: BACTERIA (WET MOUNT) 4+ BACTERIA SEEN; EPITHELIALS (WET MOUNT) 4+ EPITHELIALS SEEN; T.VAGINALIS (WET MOUNT) NO TRICHOMONAS SEEN; WBCS (WET MOUNT) RARE WBCS SEEN; YEAST (WET MOUNT) NO YEAST SEEN
[2018-08-08 13:42] LABS: CHLAM PCR NOT DETECTED (NOT DETECT); GON PCR NOT DETECTED (NOT DETECT)
== END ==
LOC: LAB 11:56
PROVIDERS: ATTEND Nurse Practitioner Family
DX: N89.8 Other specified noninflammatory disorders of vagina (principal); R30.0 Dysuria
CPT/HCPCS: 87086; 87210; 87491; 87591

== ENCOUNTER → 2019-04-04 | Outpatient (CLI) | payer MEDICAID ==
[2019-04-04 15:11] LABS: EPITHELIALS (WET MOUNT) 3+ EPITHELIALS SEEN; RBCS (WET MOUNT) 1+ RBCS SEEN; T.VAGINALIS (WET MOUNT) NO TRICHOMONAS SEEN; WBCS (WET MOUNT) FEW WBCS SEEN; YEAST (WET MOUNT) NO YEAST SEEN
[2019-04-04 16:43] LABS: CHLAM PCR NOT DETECTED (NOT DETECT)
== END ==
LOC: LAB 14:59
PROVIDERS: ATTEND Nurse Practitioner Acute Care
DX: N89.8 Other specified noninflammatory disorders of vagina (principal)
CPT/HCPCS: 87210; 87491; 87591

== ENCOUNTER 2019-05-14 13:52 | Emergency (ER) | payer MEDICAID ==
[2019-05-14] MEDS ORDERED: IBUPROFEN 800 MG TABLET PO ONE (14:34)
--- NOTE | 2019-05-14 14:59 | ER Document Report ---
HPI - HPI Time Seen by Provider: 05/14/19 14:29 Pain Level: 5 Context: Patient is a 33-year-old female presents to the emergency department with a chief complaint of her right hand injury. Patient states that last night around 7 PM she was shutting her garage door when her 2nd, 3rd, 4th and 5th digit got caught in between the door frame. Patient states this was a crush injury. Patient reports mild swelling and pain to the fourth fingers. Patient has not taken anything for this pain. Patient denies any other injury. - CONSTITUTIONAL Constitutional: DENIES: Fever, Chills - REPRODUCTIVE Reproductive: DENIES: : - MUSCULOSKELETAL Musculoskeletal: REPORTS: Extremity pain - R hand Past Medical History - General Information source: Patient - Social History Smoking Status: Current Every Day Smoker Frequency of alcohol use: Occasional Drug Abuse: None Family History: Arthritis, Malignancy, Thyroid Disfunction Patient has suicidal ideation: No Patient has homicidal ideation: No - Past Medical History Cardiac Medical History: Reports: None Pulmonary Medical History: Reports: Hx Asthma - ALBUTEROL PRN EENT Medical History: Reports: None Neurological Medical History: Reports: None Endocrine Medical History: Reports: None Renal/ Medical History: Reports: None. Denies: Hx Peritoneal Dialysis Malignancy Medical History: Reports: None GI Medical History: Reports: None Musculoskeletal Medical History: Reports Hx Arthritis - BILAT HIP DDD, Reports Hx Musculoskeletal Trauma Skin Medical History: Reports None Psychiatric Medical History: Reports: Hx Anxiety, Hx Depression - , Hx Personality Disorder, Hx Post Traumatic Stress Disorder Traumatic Medical History: Reports: None Infectious Medical History: Reports: None Past Surgical History: Reports: Hx Section - 2 - Immunizations Immunizations up to date: Yes Hx Diphtheria, Pertussis, Tetanus Vaccination: No Hx Pneumococcal Vaccination: 09/11/00 Vertical Provider Document - CONSTITUTIONAL Agree With Documented VS: Yes Exam Limitations: No Limitations General Appearance: No Apparent Distress - INFECTION CONTROL TRAVEL OUTSIDE OF THE [place] IN LAST 30 DAYS: No - HEENT HEENT: Atraumatic, Normocephalic, PERRLA - RESPIRATORY Respiratory: Breath Sounds Normal, No Respiratory Distress - CARDIOVASCULAR Cardiovascular: Regular Rate, Regular Rhythm - GI/ABDOMEN Gastrointestinal: Abdomen Soft, Abdomen Non-Tender, Normal Bowel Sounds - MUSCULOSKELETAL/EXTREMETIES Notes: Patient has mild soft tissue swelling noted to the PIP joint of the second, third, fourth and fifth digit. Patient is able to flex and extend these digits with reportable pain. There is no obvious ecchymosis or erythema. There is no laceration or abrasion. Patient is a strong +2 right radial pulse. - NEURO Level of Consciousness: Awake, Alert, Appropriate - DERM Integumentary: Warm, Dry, No Rash Course - Vital Signs Vital signs: Temp Pulse Resp BP Pulse Ox 98.5 F 80 18 113/67 96 05/14/19 13:56 05/14/19 13:56 05/14/19 13:56 05/14/19 13:56 05/14/19 13:56 - Diagnostic Test Radiology reviewed: Reports reviewed Radiology results interpreted by me: 05/14/19 15:52 Hand X-Ray 05/14/19 00:00 IMPRESSION: NEGATIVE STUDY OF THE RIGHT HAND. NO RADIOGRAPHIC EVIDENCE OF ACUTE INJURY. Discharge - Discharge Clinical Impression: Finger contusion Qualifiers: Encounter type: initial encounter Finger: unspecified finger Damage to nail status: without damage Qualified Code(s): S60.00XA - Contusion of unspecified finger without damage to nail, initial encounter Hand injury Qualifiers: Encounter type: initial encounter Laterality: right Qualified Code(s): S69.91XA - Unspecified injury of right wrist, hand and finger(s), initial encounter Condition: Stable Disposition: HOME, SELF-CARE Additional Instructions: Today you are seen in the emergency department for a right hand injury. At this time there is no fracture or dislocation that was noted in the x-ray. Your diagnosis today is finger contusions. This is a crushing of deep tissues. Typically this takes about 2 to 3 weeks to heal. Please use elevation, ice packs and rest. You can use Tylenol or ibuprofen as needed for pain. Please return emergency department if pain increases, swelling becomes severe or if you develop numbness or tingling to the injured extremity. Contusion Your injury has resulted in a contusion -- a crushing of the deep tissues. No injury to important structures was detected during the physician's exam. Contusions vary in the amount of pain they cause, and in the length of time required for healing. Typically, the area will become bruised, and will remain painful to touch for two or three weeks. However, most patients are back to working and playing within a few days. After the initial period of rest and cold-packs, your symptoms (together with the doctor's recommendations) will determine how rapidly you can get back t o full activity. Usually this means "do what feels okay, but don't do things that hurt." If re-examination was recommended, it's important to follow up as instructed. Call the doctor or return any time if pain increases, if swelling becomes severe, if you develop numbness or weakness in an injured extremity, or if any other alarming symptoms occur. Forms: Return to Work
--- NOTE | 2019-05-14 15:41 | RADIOLOGY REPORT (SQ) ---
EXAM DESCRIPTION: HAND RIGHT 3 VIEWS COMPLETED DATE/TIME: 05/14/2019 3:28 pm REASON FOR STUDY: HAND SMASHED IN GARAGE DOOR COMPARISON: None. EXAM PARAMETERS: NUMBER OF VIEWS: Three views. TECHNIQUE: AP, lateral and oblique radiographic images acquired of the right hand. LIMITATIONS: None. FINDINGS: MINERALIZATION: Normal. BONES: No acute fracture or dislocation. No worrisome bone lesions. JOINTS: No effusions. SOFT TISSUES: No soft tissue swelling. No foreign body. OTHER: No other significant finding. IMPRESSION: NEGATIVE STUDY OF THE RIGHT HAND. NO RADIOGRAPHIC EVIDENCE OF ACUTE INJURY. TECHNICAL DOCUMENTATION: JOB ID: [id number] [employer]- All Rights Reserved Reading location - IP/workstation name: [email or web address]
[2019-05-14] MEDS ORDERED: IBUPROFEN 800 MG TABLET ONE (15:52)
[2019-05-14 16:08] VITALS: BP 112/67
== END 2019-05-14 16:07 | disposition home or self-care (01) ==
LOC: ER 13:52
DX: S60.00XA Contusion of unspecified finger without damage to nail, initial encounter (principal); S69.91XA Unspecified injury of right wrist, hand and finger(s), initial encounter; W23.1XXA Caught, crushed, jammed, or pinched between stationary objects, initial encounter; Y92.009 Unspecified place in unspecified non-institutional (private) residence as the place of occurrence of the external cause; F17.200 Nicotine dependence, unspecified, uncomplicated
CPT/HCPCS: 73130; J3490

== ENCOUNTER 2019-05-25 23:37 | Emergency (ER) | payer MEDICAID ==
--- NOTE | 2019-05-26 00:40 | ER Document Report ---
ED GI/ - General Chief Complaint: Lower Abdominal Pain Stated Complaint: LOWER ABDOMINAL PAIN Time Seen by Provider: 05/26/19 00:32 Mode of Arrival: Ambulatory Information source: Patient Notes: Chief complaint: Dysuria History of complain:( obtained from----patient) 33 years old female presents today with dysuria and frequency as well as internal bleeding. Claiming that she has a partner who was diagnosed with gonorrhea, inadequately treated. Denies being . Denies any fever chills. Also having lower abdominal pain and discomfort. Onset: As a above, last 2 days Duration: Gradual Severity: Moderate Quality: Sharp burning Context: As above Exacerbating factor and relieving factors: None REVIEW OF SYSTEMS: CONSTITUTIONAL : Denies fever, chills, or sweats. Denies recent illness. EENT: Denies eye, ear, throat, or mouth pain or symptoms. Denies nasal or sinus congestion or discharge. Denies throat, tongue, or mouth swelling or difficulty swallowing. CARDIOVASCULAR: Denies chest pain. Denies palpitations or racing or irregular heart beat. Denies ankle edema. RESPIRATORY: Denies cough, cold, or chest congestion. Denies shortness of breath, difficulty breathing, or wheezing. GASTROINTESTINAL: Denies distention. Denies nausea, vomiting, or diarrhea. Denies blood in vomitus, stools, or per rectum. Denies black, tarry stools. Denies constipation. GENITOURINARY: Denies difficulty urinating, painful urination, burning, frequency, blood in urine, or discharge. FEMALE GENITOURINARY: Denies vaginal bleeding, heavy or abnormal periods, irregular periods. Denies vaginal discharge or odor. MUSCULOSKELETAL: Denies back or neck pain or stiffness. Denies joint pain or swelling. SKIN: Denies rash, lesions or sores. HEMATOLOGIC : Denies easy bruising or bleeding. LYMPHATIC: Denies swollen, enlarged glands. NEUROLOGICAL: Denies confusion or altered mental status. Denies passing out or loss of consciousness. Denies dizziness or lightheadedness. Denies headache. Denies weakness or paralysis or loss of use of either side. Denies problems with gait or speech. Denies sensory loss, numbness, or tingling. Denies seizures. PSYCHIATRIC: Denies anxiety or stress. Denies depression, suicidal ideation, or homicidal ideation. ALL OTHER SYSTEMS REVIEWED AND NEGATIVE. PHYSICAL EXAMINATION: GENERAL: Well-appearing, well-nourished and in no acute distress. HEAD: Atraumatic, normocephalic. LUNGS: Breath sounds clear to auscultation bilaterally and equal. No wheezes rales or rhonchi. HEART: Regular rate and rhythm without murmurs ABDOMEN: Soft, nontender, nondistended abdomen. No guarding, no rebound. No masses appreciated. Examination of genitals-deferred Musculoskeletal: Normal range of motion, no pitting or edema. No cyanosis. SKIN: Warm, Dry, normal turgor, no rashes or lesions noted. Dictation was performed using [employer] voice recognition software TRAVEL OUTSIDE OF THE [place] IN LAST 30 DAYS: No - HPI Notes: 05/26/19 00:40 Dictated - Related Data Allergies/Adverse Reactions: No Known Allergies Allergy (Verified 05/14/19 13:56) Past Medical History - General Information source: Patient - Social History Smoking Status: Current Every Day Smoker Frequency of alcohol use: Rare Drug Abuse: None Lives with: Family Family History: Arthritis, Malignancy, Thyroid Disfunction Pulmonary Medical History: Reports: Hx Asthma - ALBUTEROL PRN Renal/ Medical History: Denies: Hx Peritoneal Dialysis Musculoskeletal Medical History: Reports Hx Arthritis - BILAT HIP DDD, Reports Hx Musculoskeletal Trauma Psychiatric Medical History: Reports: Hx Anxiety, Hx Depression - , Hx Personality Disorder, Hx Post Traumatic Stress Disorder Past Surgical History: Reports: Hx Section - 2 - Immunizations Immunizations up to date: Yes Hx Diphtheria, Pertussis, Tetanus Vaccination: No Hx Pneumococcal Vaccination: 09/11/00 Review of Systems - Review of Systems Notes: Dictated Physical Exam - Vital signs Vitals: Temp Pulse Resp BP Pulse Ox 98.5 F 82 18 109/73 97 05/25/19 23:48 05/25/19 23:48 05/25/19 23:48 05/25/19 23:48 05/25/19 23:48 - Notes Notes: Dictated Course - Vital Signs Vital signs: Temp Pulse Resp BP Pulse Ox 98.5 F 82 18 109/73 97 05/25/19 23:48 05/25/19 23:48 05/25/19 23:48 05/25/19 23:48 05/25/19 23:48 - Laboratory Result Diagrams: 05/26/19 00:10 05/26/19 00:10 Laboratory results interpreted by me: 05/26/19 05/26/19 05/26/19 00:10 00:10 00:10 WBC 11.2 H Glucose 121 H Urine Blood LARGE H Ur Leukocyte Esterase MODERATE H Discharge - Discharge Clinical Impression: Urethritis Condition: Fair Disposition: HOME, SELF-CARE Instructions: Urethritis ([facility]) Prescriptions: Doxycycline Hyclate 100 mg PO BID #14 capsule
[2019-05-26] MEDS ORDERED: CEFTRIAXONE INJ 250 MG VIAL IM ONE (00:41)
[2019-05-26] MEDS ORDERED: AZITHROMYCIN 1 GM SUSP PACKET PO ONE (00:41)
[2019-05-26 00:47] LABS: ABSOLUTE BASOPHILS # (AUTO) 0.1 10^3/uL (0.0-0.2); ABSOLUTE EOSINOPHILS # (AUTO) 0.3 10^3/uL (0.0-0.6); ABSOLUTE LYMPHOCYTES (AUTO) 2.7 10^3/uL (0.5-4.7); ABSOLUTE MONOCYTES (AUTO) 0.6 10^3/uL (0.1-1.4); ABSOLUTE NEUT (AUTO) 7.5 10^3/uL (1.7-8.2); BASOPHILS % (AUTO) 0.9 % (0-2); EOSINOPHILS % (AUTO) 3.1 % (0-6); HEMATOCRIT 40.2 % (36.0-47.0); HEMOGLOBIN 13.6 g/dL (12.0-15.5); LYMPHOCYTES % (AUTO) 23.9 % (13-45); MEAN CORPUSCULAR HEMOGLOBIN 31.1 pg (27.0-33.4); MEAN CORPUSCULAR HGB CONC 33.9 g/dL (32.0-36.0); MEAN CORPUSCULAR VOLUME 92 fl (80-97); PLATELET COUNT 246 10^3/uL (150-450); RED BLOOD COUNT 4.38 10^6/uL (3.72-5.28); RED CELL DISTRIBUTION WIDTH 13.1 % (11.5-14.0); SEGMENTED NEUTROPHILS % (AUTO) 67.1 % (42-78); TOTAL CELLS COUNTED % (AUTO) 100 %; WHITE BLOOD COUNT 11.2 10^3/uL (4.0-10.5)
[2019-05-26] MEDS ORDERED: LIDOCAINE 1% INJ (10 MG/ML) 10 ML MDV IM ONE (00:54)
[2019-05-26 01:03] LABS: APPEARANCE,URINE CLEAR; BILIRUBIN,URINE NEGATIVE (NEGATIVE); COLOR,URINE YELLOW; GLUCOSE, URINE NEGATIVE (NEGATIVE); KETONES,URINE NEGATIVE (NEGATIVE); LEUKOCYTE ESTERASE,URINE MODERATE (NEGATIVE); NITRITE,URINE NEGATIVE (NEGATIVE); PROTEIN,URINE NEGATIVE (NEGATIVE); URINE SPECIFIC GRAVITY 1.004; UROBILINOGEN,URINE NEGATIVE mg/dL (<2.0)
[2019-05-26 01:05] LABS: ALBUMIN 4.5 g/dL (3.5-5.0); ALKALINE PHOSPHATASE 56 U/L (38-126); ANION GAP 9 (5-19); ASPARTATE AMINO TRANSFERASE 23 U/L (14-36); BILIRUBIN,TOTAL 0.4 mg/dL (0.2-1.3); BLOOD UREA NITROGEN 9 mg/dL (7-20); CALCIUM 9.8 mg/dL (8.4-10.2); CARBON DIOXIDE 28 mmol/L (22-30); CHLORIDE 105 mmol/L (98-107); GLUCOSE 121 mg/dL (75-110); POTASSIUM 3.6 mmol/L (3.6-5.0); TOTAL PROTEIN 7.4 g/dL (6.3-8.2)
[2019-05-26 02:00] VITALS: BP 99/56
== END 2019-05-26 02:00 | disposition home or self-care (01) ==
LOC: ER 23:37
DX: N34.2 Other urethritis (principal); R30.0 Dysuria; R35.0 Frequency of micturition; R58 Hemorrhage, not elsewhere classified; R10.30 Lower abdominal pain, unspecified; F17.200 Nicotine dependence, unspecified, uncomplicated; J45.909 Unspecified asthma, uncomplicated; Z20.2 Contact with and (suspected) exposure to infections with a predominantly sexual mode of transmission
CPT/HCPCS: 36415; 83690; 85025; 81025; 80053; 81001; Q0144; J0696; J3490; 99284

== ENCOUNTER → 2019-09-05 | Outpatient (CLI) | payer MEDICAID ==
[2019-09-05 12:55] LABS: T.VAGINALIS (WET MOUNT) NO TRICHOMONAS SEEN; WBCS (WET MOUNT) 1+ WBCS SEEN; YEAST (WET MOUNT) YEAST SEEN
[2019-09-05 12:56] LABS: BACTERIA (WET MOUNT) 4+ BACTERIA SEEN; EPITHELIALS (WET MOUNT) 4+ EPITHELIALS SEEN
[2019-09-05 14:28] LABS: CHLAM PCR NOT DETECTED (NOT DETECT)
== END ==
LOC: LAB 12:46
PROVIDERS: ATTEND Nurse Practitioner Family
DX: N76.0 Acute vaginitis (principal); R30.0 Dysuria
CPT/HCPCS: 87210; 87491; 87591

== ENCOUNTER 2019-11-11 16:00 | Emergency (ER) | payer MEDICAID ==
[2019-11-11] MEDS ORDERED: NORMAL SALINE 500 ML IV ONE (17:18)
--- NOTE | 2019-11-11 17:20 | ER Document Report ---
ED Medical Screen (RME) - General Chief Complaint: Abdominal Cramping Stated Complaint: ABDOMINAL PAIN/BACK PAIN/NAUSEA/LIGHT SPOTTING Time Seen by Provider: 11/11/19 17:10 Primary Care Provider: TERRENCE HOLCOMB FNP- [Primary Care Provider] - Follow up as needed Notes: Patient is a G3, P2 who presents emergency department with a chief complaint of lower abdominal cramping. Patient reports she developed lower abdominal cramping with light pink spotting yesterday. Patient reports she is about 5 weeks . Last menstrual cycle October 08. Patient denies foul-smelling odor to the vaginal discharge. Denies vomiting but does report multiple episodes of diarrhea. Patient reports she feels like she is dehydrated. TRAVEL OUTSIDE OF THE [place] IN LAST 30 DAYS: No - Related Data Allergies/Adverse Reactions: No Known Allergies Allergy (Verified 11/11/19 17:11) Past Medical History - Social History Family history: None Pulmonary Medical History: Reports: Hx Asthma - ALBUTEROL PRN Renal/ Medical History: Denies: Hx Peritoneal Dialysis Musculoskeltal Medical History: Reports Hx Arthritis - BILAT HIP DDD, Reports Hx Musculoskeletal Trauma Psychiatric Medical History: Reports: Hx Anxiety, Hx Depression - , Hx Personality Disorder, Hx Post Traumatic Stress Disorder Past Surgical History: Reports: Hx Section - 2 - Immunizations Immunizations up to date: Yes Hx Diphtheria, Pertussis, Tetanus Vaccination: No Physical Exam - Vital signs Vitals: Temp Pulse Resp BP Pulse Ox 99.1 F 104 H 18 117/73 100 11/11/19 16:11 11/11/19 16:11 11/11/19 16:11 11/11/19 16:11 11/11/19 16:11 Course - Re-evaluation Re-evalutation: 11/11/19 17:20 I have greeted and performed a rapid initial assessment of this patient. A comprehensive ED assessment and evaluation of the patient, analysis of test results and completion of the medical decision making process will be conducted by additional ED providers. - Vital Signs Vital signs: Temp Pulse Resp BP Pulse Ox 99.1 F 104 H 18 117/73 100 11/11/19 16:11 11/11/19 16:11 11/11/19 16:11 11/11/19 16:11 11/11/19 16:11 Doctor's Discharge - Discharge Referrals: TERRENCE HOLCOMB, [facility] [employer] [facility] [Primary Care Provider] - Follow up as needed
[2019-11-11 17:48] LABS: ABSOLUTE LYMPHOCYTES (AUTO) 0.3 10^3/uL (0.5-4.7); ABSOLUTE MONOCYTES (AUTO) 0.8 10^3/uL (0.1-1.4); BASOPHILS % (AUTO) 0.7 % (0-2); EOSINOPHILS % (AUTO) 0.4 % (0-6); HEMATOCRIT 37.6 % (36.0-47.0); HEMOGLOBIN 13.1 g/dL (12.0-15.5); LYMPHOCYTES % (AUTO) 5.4 % (13-45); MEAN CORPUSCULAR HEMOGLOBIN 32.1 pg (27.0-33.4); MEAN CORPUSCULAR VOLUME 92 fl (80-97); MONOCYTES % (AUTO) 12.5 % (3-13); PLATELET COUNT 190 10^3/uL (150-450); RED BLOOD COUNT 4.09 10^6/uL (3.72-5.28); RED CELL DISTRIBUTION WIDTH 13.2 % (11.5-14.0); TOTAL CELLS COUNTED % (AUTO) 100 %; WHITE BLOOD COUNT 6.1 10^3/uL (4.0-10.5)
[2019-11-11 18:13] LABS: ALBUMIN 4.1 g/dL (3.5-5.0); ALKALINE PHOSPHATASE 50 U/L (38-126); ANION GAP 8 (5-19); ASPARTATE AMINO TRANSFERASE 27 U/L (14-36); BILIRUBIN,TOTAL 0.6 mg/dL (0.2-1.3); BLOOD UREA NITROGEN 8 mg/dL (7-20); CALCIUM 8.8 mg/dL (8.4-10.2); CARBON DIOXIDE 23 mmol/L (22-30); CHLORIDE 100 mmol/L (98-107); GLUCOSE 93 mg/dL (75-110); POTASSIUM 3.6 mmol/L (3.6-5.0); TOTAL PROTEIN 6.9 g/dL (6.3-8.2)
[2019-11-11 19:01] LABS: APPEARANCE,URINE SLIGHTLY-CLOUDY; BILIRUBIN,URINE NEGATIVE (NEGATIVE); COLOR,URINE YELLOW; GLUCOSE, URINE NEGATIVE (NEGATIVE); KETONES,URINE 80 mg/dL (NEGATIVE); LEUKOCYTE ESTERASE,URINE NEGATIVE (NEGATIVE); NITRITE,URINE NEGATIVE (NEGATIVE); PROTEIN,URINE NEGATIVE (NEGATIVE); URINE SPECIFIC GRAVITY 1.017; UROBILINOGEN,URINE NEGATIVE mg/dL (<2.0)
--- NOTE | 2019-11-11 19:45 | RADIOLOGY REPORT (SQ) ---
EXAM DESCRIPTION: CHEST 2 VIEWS COMPLETED DATE/TIME: 11/11/2019 7:29 pm REASON FOR STUDY: Cough/fever COMPARISON: 12/08/2016 EXAM PARAMETERS: NUMBER OF VIEWS: two views TECHNIQUE: Digital Frontal and Lateral radiographic views of the chest acquired. RADIATION DOSE: NA LIMITATIONS: none FINDINGS: LUNGS AND PLEURA: No opacities, masses or pneumothorax. No pleural effusion. MEDIASTINUM AND HILAR STRUCTURES: No masses or contour abnormalities. HEART AND VASCULAR STRUCTURES: Heart normal size. No evidence for failure. BONES: No acute findings. HARDWARE: None in the chest. OTHER: No other significant finding. IMPRESSION: NO ACUTE RADIOGRAPHIC FINDING IN THE CHEST. TECHNICAL DOCUMENTATION: JOB ID: [id number] 2010 [employer]- All Rights Reserved Reading location - IP/workstation name: [email or web address]
[2019-11-11 19:48] LABS: A TYPE INFLUENZA AG POSITIVE (NEGATIVE); B INFLUENZA AG NEGATIVE (NEGATIVE)
[2019-11-11] MEDS ORDERED: NORMAL SALINE 1000 ML 1,000 ML IV ONE (20:30)
--- NOTE | 2019-11-11 20:34 | ER Document Report ---
ED General - General Chief Complaint: Abdominal Cramping Stated Complaint: ABDOMINAL PAIN/BACK PAIN/NAUSEA/LIGHT SPOTTING Time Seen by Provider: 11/11/19 17:10 Primary Care Provider: TERRENCE HOLCOMB FNP-BC [NURSE PRACTITIONER] - Follow up as needed Mode of Arrival: Ambulatory Information source: Patient TRAVEL OUTSIDE OF THE [place] IN LAST 30 DAYS: No - HPI Notes: Patient states that she has had fever and chills for several days as well as generalized weakness. She is also had profuse diarrhea and bilateral lower abdominal crampy pain. She states she believes she is approximate 5 weeks . No vaginal leaking of fluid or bleeding. Some nausea. She is also had cough congestion and significant rhinorrhea. Symptoms been constant and moderate to severe. The pain is crampy in nature and does radiate across the abdomen. Nothing makes it better or worse. - Related Data Allergies/Adverse Reactions: No Known Allergies Allergy (Verified 11/11/19 17:11) Past Medical History - General Information source: Patient - Social History Smoking Status: Current Some Day Smoker Frequency of alcohol use: None Drug Abuse: None Family History: Arthritis, Malignancy, Thyroid Disfunction Patient has suicidal ideation: No Patient has homicidal ideation: No Pulmonary Medical History: Reports: Hx Asthma - ALBUTEROL PRN Renal/ Medical History: Denies: Hx Peritoneal Dialysis Musculoskeletal Medical History: Reports Hx Arthritis - BILAT HIP DDD, Reports Hx Musculoskeletal Trauma Psychiatric Medical History: Reports: Hx Anxiety, Hx Depression - , Hx Personality Disorder, Hx Post Traumatic Stress Disorder Past Surgical History: Reports: Hx Section - 2 - Immunizations Immunizations up to date: Yes Hx Diphtheria, Pertussis, Tetanus Vaccination: No Hx Pneumococcal Vaccination: 09/11/00 Review of Systems - Review of Systems Constitutional: Chills, Fever, Malaise, Weakness Cardiovascular: denies: Chest pain, Palpitations Respiratory: Cough, Short of breath -: Yes All other systems reviewed and negative Physical Exam - Vital signs Vitals: Temp Pulse Resp BP Pulse Ox 99.1 F 104 H 18 117/73 100 11/11/19 16:11 11/11/19 16:11 11/11/19 16:11 11/11/19 16:11 11/11/19 16:11 Interpretation: Tachycardic, Febrile - General General appearance: Appears well, Alert In distress: None - HEENT Head: Normocephalic, Atraumatic Eyes: Normal Pupils: PERRL - Respiratory Respiratory status: No respiratory distress Chest status: Nontender Breath sounds: Normal Chest palpation: Normal - Cardiovascular Rhythm: Tachycardia Heart sounds: Normal auscultation Murmur: No - Abdominal Inspection: Normal Distension: No distension Bowel sounds: Normal Tenderness: Nontender Organomegaly: No organomegaly - Back Back: Normal, Nontender - Extremities General upper extremity: Normal inspection, Nontender, Normal color, Normal ROM, Normal temperature General lower extremity: Normal inspection, Nontender, Normal color, Normal ROM, Normal temperature, Normal weight bearing. No: Queta's sign - Neurological Neuro grossly intact: Yes Cognition: Normal Orientation: AAOx4 [place] Coma Scale Eye Opening: Spontaneous [place] Coma Scale Verbal: Oriented Kristian Coma Scale Motor: Obeys Commands Krist[place] Coma Scale Total: 15 Speech: Normal Motor strength normal: LUE, RUE, LLE, RLE Sensory: Normal - Psychological Associated symptoms: Normal affect, Normal mood - Skin Skin Temperature: Warm Skin Moisture: Dry Skin Color: Normal Course - Re-evaluation Re-evalutation: 11/11/19 20:32 Patient is positive for influenza A. Her abdominal exam is soft on my exam. It seems most consistent with patient's presentation of a positive flu test with rhinorrhea cough and fever that her symptoms are secondary to the viral infe ction. I do not believe the patient has an ectopic as well as she has no significant abdominal pain on my exam however patient was educated about the need to return should she have continued problems with lightheadedness dizziness abdominal pain or vaginal bleeding. - Vital Signs Vital signs: Temp Pulse Resp BP Pulse Ox 100.3 F 103 H 18 100/54 L 98 11/11/19 19:01 11/11/19 19:13 11/11/19 16:11 11/11/19 19:13 11/11/19 19:13 - Laboratory Result Diagrams: 11/11/19 17:35 11/11/19 17:35 Laboratory results interpreted by me: 11/11/19 11/11/19 11/11/19 17:35 17:35 17:35 Lymph % (Auto) 5.4 L Absolute Lymphs (auto) 0.3 L Seg Neutrophils % 81.0 H Sodium 130.9 L Beta HCG, Quant 255.30 H Urine Ketones 80 H Discharge - Discharge Clinical Impression: Influenza A Qualifiers: Weeks of gestation: less than 8 weeks Qualified Code(s): Z3A.01 - Less than 8 weeks gestation of Condition: Stable Disposition: HOME, SELF-CARE Instructions: Influenza ([facility]) [id number] Additional Instructions: Please drink lots of fluids and keep yourself well-hydrated Prescriptions: Metoclopramide HCl [Reglan 10 mg Tablet] 1 tab PO Q6 5 Days #12 tablet Forms: Return to Work Referrals: TERRENCE HOLCOMB, MANAGER [employer]-[facility] [NURSE PRACTITIONER] - Follow up in 3-5 days
[2019-11-11 22:51] VITALS: BP 113/69
== END 2019-11-11 21:45 | disposition home or self-care (01) ==
LOC: ER 16:00
DX: O26.91 Pregnancy related conditions, unspecified, first trimester (principal); J11.1 Influenza due to unidentified influenza virus with other respiratory manifestations; R10.9 Unspecified abdominal pain; R50.9 Fever, unspecified; R53.1 Weakness; F17.200 Nicotine dependence, unspecified, uncomplicated; Z3A.01 Less than 8 weeks gestation of pregnancy
CPT/HCPCS: 99284; 96360; 96361; 36415; 84702; 85025; 80053; 81001; 87804; 71046; J7030; J7040

== ENCOUNTER 2020-06-17 21:11 | Emergency (ER) | payer MEDICAID ==
--- NOTE | 2020-06-17 21:49 | ER Document Report ---
ED Medical Screen (RME) - General Chief Complaint: Urinary Problem Stated Complaint: PAINFUL URINATION Primary Care Provider: TERRENCE HOLCOMB FNP-BC [Primary Care Provider] - Follow up as needed Notes: Patient is a 34-year-old -[place] female status post breast reconstruction 1 month ago who is been suffering with UTI symptoms for 4 months states that she take a recent antibiotic regimen without any improvement who presents today with a chief complaint of having a current cold, and abscess formation on the right buttock, runny nose and most concerned about her breast reconstruction as she was not allowed to follow-up with the surgeon given that she could not bring her child with her to the appointment would like her incisions evaluated as well. He is a current everyday smoker. No recent travel or known sick contacts. I have treated and performed a rapid initial assessment of this patient. A comprehensive ED assessment and evaluation of the patient, analysis of test results and completion of medical decision making process will be conducted by additional ED providers. PHYSICAL EXAMINATION: GENERAL: Well-appearing, well-nourished and in no acute distress. A&Ox4. Answers questions appropriately. TRAVEL OUTSIDE OF THE [place] IN LAST 30 DAYS: No - Related Data Allergies/Adverse Reactions: No Known Allergies Allergy (Verified 06/17/20 21:34) Past Medical History - Social History Frequency of alcohol use: Occasional Drug Abuse: None Family history: None Pulmonary Medical History: Reports: Hx Asthma - ALBUTEROL PRN Renal/ Medical History: Denies: Hx Peritoneal Dialysis Musculoskeltal Medical History: Reports Hx Arthritis - BILAT HIP DDD, Reports Hx Musculoskeletal Trauma Psychiatric Medical History: Reports: Hx Anxiety, Hx Depression - , Hx Personality Disorder, Hx Post Traumatic Stress Disorder Past Surgical History: Reports: Hx Section - 2 - Immunizations Immunizations up to date: Yes Hx Diphtheria, Pertussis, Tetanus Vaccination: No Physical Exam - Vital signs Vitals: Temp Pulse Resp BP Pulse Ox 98.0 F 85 16 101/77 99 06/17/20 21:27 06/17/20 21:27 06/17/20 21:27 06/17/20 21:27 06/17/20 21:27 Course - Vital Signs Vital signs: Temp Pulse Resp BP Pulse Ox 98.0 F 85 16 101/77 99 06/17/20 21:27 06/17/20 21:27 06/17/20 21:27 06/17/20 21:27 06/17/20 21:27 Doctor's Discharge - Discharge Referrals: TERRENCE HOLCOMB, [employer] DIG[employer] [Primary Care Provider] - Follow up as needed
--- NOTE | 2020-06-17 22:43 | RADIOLOGY REPORT (SQ) ---
EXAM DESCRIPTION: XR CHEST 1 VIEW COMPLETED DATE/TME: 06/17/2020 21:46 CLINICAL HISTORY: 34 years, Female, asthma/cold COMPARISON: Prior study from 11/11/2019 NUMBER OF VIEWS: One TECHNIQUE: Single frontal view of the chest was obtained LIMITATIONS: None. FINDINGS: Cardiac and mediastinal contours are normal in appearance. Lungs are clear. No pleural effusion or pneumothorax. IMPRESSION: No acute disease. copyright 2010 [employer]- All Rights Reserved
[2020-06-18 02:04] LABS: APPEARANCE,URINE SLIGHTLY-CLOUDY; BILIRUBIN,URINE NEGATIVE (NEGATIVE); COLOR,URINE YELLOW; GLUCOSE, URINE NEGATIVE (NEGATIVE); KETONES,URINE NEGATIVE (NEGATIVE); PROTEIN,URINE 30 mg/dL (NEGATIVE); URINE SPECIFIC GRAVITY 1.023
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
[2020-06-18] MEDS ORDERED: IPRATROPIUM/ALBUTEROL 0.5-2.5 MG/3 ML AMPUL NEB ONE (02:37)
[2020-06-18] MEDS ORDERED: CEFTRIAXONE INJ 1000 MG VIAL IM ONE (02:38)
[2020-06-18] MEDS ORDERED: DEXAMETHASONE SOD PHOS INJ 10 MG/1 ML VIAL IM ONE (02:39)
[2020-06-18] MEDS ORDERED: GENTAMICIN SULFATE INJ 80 MG/2 ML VIAL IM ONE (02:41)
[2020-06-18 05:55] VITALS: BP 110/69
[2020-06-18 07:07] LABS: CHLAM PCR DETECTED (NOT DETECT)
== END 2020-06-18 05:54 | disposition home or self-care (01) ==
LOC: ER 21:11
DX: J45.901 Unspecified asthma with (acute) exacerbation (principal); N30.00 Acute cystitis without hematuria; L02.32 Furuncle of buttock; F17.210 Nicotine dependence, cigarettes, uncomplicated
CPT/HCPCS: 99284; 94640; 96372; 36415; 87086; 81025; 87088; 81001; 87186; 87491; 87591; 71045; J1580; J0696; J1100